=== PATIENT | female | born 1945 | race Caucasian/White ===

== ENCOUNTER → 2017-05-01 | Outpatient (CLI) | payer OTHER, BC ==
[~2017-05-01] MED LIST: ALLO100T PO; AMLO-114 PO; ATOR-26 PO; CHOL20009 PO; CILO100T PO; CLOP1TAB54 PO; DVN80 PO; FERR325T5 PO; NXM/40 PO; PANC1200 PO; SULF800T23 PO
--- NOTE | 2017-05-01 11:55 | DIAGNOSTIC IMAGING REPORT ---
(RENAL)RETROPERITON COMP CLINICAL HISTORY: 72 years-old Female presenting with N13.30 [id number] Renal [id number]. TECHNIQUE: Real-time grayscale and limited color Doppler ultrasound imaging of the kidneys and bladder was performed. COMPARISON: 05/01/2016. FINDINGS: Right kidney: Thin cortex with persistent severe pelvocaliectasis, unchanged from prior. Right kidney measures 10.9 cm. 2.6 cm simple appearing cyst at the upper pole the right kidney. Normal perfusion. Left kidney: Mildly echogenic parenchyma. Left kidney measures 10.5 cm. No hydronephrosis. Exophytic cyst noted at the upper pole measuring 2.7 cm potentially with a single thin septation (Bosniak 2). Several simple cysts are also noted. Normal perfusion. Bladder: No bladder wall thickening. Bilateral ureteral jets present. Other: None. IMPRESSION: 1. Unchanged appearance of severe right pelvocaliectasis. Chronic atrophy of the right renal cortex. 2. No left hydronephrosis. 3. Bilateral ureteral jets consistent with the absence of complete obstruction. 4. Renal cysts bilaterally. 5. Medical renal disease of the left kidney suggested. Electronically signed by: Sunny Zavala M.D. 05/01/2017 11:54 AM Dictated Date/Time: 05/01/2017 11:50 AM
== END | disposition home or self-care (01) ==
LOC: C.ULTR 10:18
PROVIDERS: ATTEND Urology
DX: N13.30 Unspecified hydronephrosis (principal); N19 Unspecified kidney failure; N28.1 Cyst of kidney, acquired

== ENCOUNTER → 2017-05-01 | Outpatient (CLI) | payer OTHER, BC ==
[2017-05-01 13:25] LABS: BLOOD UREA NITROGEN 39 mg/dl (7-18); BUN/CREATININE RATIO 17.9 (10-20)
== END | disposition home or self-care (01) ==
LOC: C.LAB 10:26
PROVIDERS: ATTEND Urology
DX: N13.30 Unspecified hydronephrosis (principal); N19 Unspecified kidney failure